=== PATIENT | female | born 1940 | race Caucasian/White ===

== ENCOUNTER 2024-12-22 09:42 | Observation (INO) | payer MEDICARE ==
[~2024-12-22] VITALS: Ht 152.4 cm; Wt 40.4 kg
[2024-12-22 10:05] LABS: IMMATURE GRANULOCYTE ABSOLUTE 0.02 K/uL (0-1); NUCLEATED RED BLOOD CELLS 0.0 % (0.0-0.19); PLATELET COUNT (AUTO) 196 K/uL (130-400); RED BLOOD CELL COUNT(AUTO) 4.67 MIL/uL (4.00-5.50); RED CELL DISTRIBUTION WIDTH 14.2 % (11.0-15.5); WHITE BLOOD COUNT (AUTO) 4.2 K/uL (4.8-10.8)
[2024-12-22 10:12] LABS: CREATININE 1.1 mg/dL (0.5-1.0); GLOMERULAR FILTR. RATE CALC 49.0 mL/min (>90); GLUCOSE,RANDOM 113.0 mg/dL (70-105); SODIUM SERUM 138.0 mmol/L (136-145); UREA NITROGEN, BLOOD 33.0 mg/dL (7-18)
--- NOTE | 2024-12-22 10:13 | ERN ---
General Chief Complaint: Dizzy/Light Headed Stated Complaint: DIZZINESS, GBW Time Seen by MD: 09:48 Source: patient History of Present Illness Initial Comments Patient is a an 84-year-old female coming in to be evaluated for generalized body weakness and vertigo for eight months. Per patient she has been dizzy on and off for eight months has been evaluated before but states that her vertigo goes and comes along with the she states he is overwhelmed because he is taking care were has been who was had the bur and the senior living. She states "she can not go on". Allergies: Coded Allergies: acetaminophen (Unverified Allergy, Unknown, 12/22/24) codeine (Unverified Allergy, Unknown, 12/22/24) naproxen (Unverified Allergy, Unknown, 12/22/24) Past Medical History Past Medical History: Diabetes-Type II, High Cholesterol Past Surgical History: Other Surgical History Other: BACK SX , RT ARM ROS Dictation CONSTITUTIONAL: No chills, no fever, no weakness, no diaphoresis, no malaise. HEAD/FACE: No signs of trauma. EENT: No eye pain, no blurred vision, no tearing, no double vision, no ear pain, no ear discharge, no nose pain, no nasal congestion, no throat pain, no throat swelling, no mouth pain. RESPIRATORY: No cough, no orthopnea, no SOB, no stridor, no wheezing. CARDIOVASCULAR: No chest pain, no edema, no palpitations, no syncope. GASTROINTESTINAL/ABDOMINAL: No abdominal pain, no constipation, no diarrhea, no nausea, no vomiting. GENITOURINARY: No abnormal discharge, no dysuria, no frequent urination, no hematuria. No complaints of pain in the genitals. MUSCULOSKELETAL: No back pain, no gout, no joint pain, no joint swelling, no muscle pain, no muscle stiffness, no neck pain. INTEGUMENTARY: No change in color, no change in hair/nails, no dryness, no lesion, no lumps, no rash. NEUROLOGICAL/PSYCH: No anxiety, not depressed, no emotional problem, no headache, no numbness, no pre-existing deficit, no history of seizures, no tremors, no weakness. HEMATOLOGIC/LYMPHATIC: Not anemic, no history of blood clots, no apparent bleeding, no bruising, glands not swollen. All Systems Negative, Except as Noted. Physical Exam Physical Exam Dictation VITAL SIGNS: Reviewed. GENERAL APPEARANCE: Alert, oriented x3, no acute distress, obese. HEAD AND FACE: Non-traumatic. EYES: PERRL, pink conjunctivas, eyelid no trauma, anterior chamber clear. EARS: Pinnas intact and no signs of trauma or erythema. Ear canals clear and no discharge. TMs no erythema. NOSE: No discharge, no bleeding. OROPHARYNX: Mouth normal, teeth no caries, tongue pink. Pharynx clear, no erythema. Tonsils no exudates, no abscesses noted. Mucous membrane moist. NECK: Supple, non-tender, no thyromegaly, no masses, no JVD, no bruits. BREAST: Deferred. CHEST: No tenderness, no crepitus, no paradoxical movement, no retractions. LUNGS: Clear, well-ventilated, symmetric, no rales, no wheezing, no rhonchi, no stridor, good breath sounds bilaterally. HEART: Regular rate, regular rhythm, no murmur, no gallops. VASCULAR: No peripheral edema. ABDOMEN: Soft, positive bowel sounds, nondistended, no guarding, nontender, no rebound, no masses no hepatomegaly, no splenomegaly, no Velásquez's sign, no hernias. RECTAL: Deferred. GENITAL: Deferred. NEUROLOGICAL: Normal speech, gross motor function intact, gross sensory function intact. MUSCULOSKELETAL: Neck nontender, full range of motion, back nontender, full range of motion. EXTREMITIES: Nontender, full range of motion. SKIN: Color pink, dry, no turgor, no rash, no lacerations, no abrasions, no contusions. LYMPHATICS: Deferred. Results Laboratory and Microbiology Lab and Micro Result Laboratory Tests Test 12/22/24 10:00 12/22/24 10:34 White Blood Count 4.2 K/uL (4.8-10.8) L Red Blood Count 4.67 MIL/uL (4.00-5.50) Hemoglobin 13.8 g/dL (12.0-16.0) Hematocrit 42.2 % (36-48) Mean Corpuscular Volume 90.4 fL (79-99) Mean Corpuscular Hemoglobin 29.6 pg (27.0-33.0) Mean Corpuscular Hemoglobin Concent 32.7 g/dL (32.0-36.0) Red Cell Distribution Width 14.2 % (11.0-15.5) Platelet Count 196 K/uL (130-400) Mean Platelet Volume 11.4 fL (7.5-10.5) H Immature Granulocyte % (Auto) 0.5 % (0-1) Neutrophils (%) (Auto) 75.4 % (40.0-77.0) Lymphocytes (%) (Auto) 11.1 % (21.0-51.0) L Monocytes (%) (Auto) 11.1 % (3.0-13.0) Eosinophils (%) (Auto) 0.7 % (0.0-8.0) Basophils (%) (Auto) 1.2 % (0.0-5.0) Neutrophils # (Auto) 3.2 K/uL (1.8-7.7) Lymphocytes # (Auto) 0.5 K/uL (1.0-4.8) L Monocytes # (Auto) 0.5 K/uL (0.1-1.0) Eosinophils # (Auto) 0.03 K/uL (0.00-0.70) Basophils # (Auto) 0.05 K/uL (0.00-0.20) Absolute Immature Granulocyte (auto 0.02 K/uL (0-1) Nucleated Red Blood Cells 0.0 % (0.0-0.19) Sodium Level 138 mmol/L (136-145) Potassium Level 4.4 mmol/L (3.5-5.1) Chloride Level 101 mmol/L (101-111) Carbon Dioxide Level 30 mmol/L (21-32) Blood Urea Nitrogen 33 mg/dL (7-18) H Creatinine 1.1 mg/dL (0.5-1.0) H Glomerular Filtration Rate Calc 49 mL/min (>90) Random Glucose 113 mg/dL (70-105) H Total Calcium 9.2 mg/dL (8.5-10.1) Urine Color LIGHT-YELLOW (YELLOW) Urine Appearance CLEAR (CLEAR) Urine pH 6.0 (5.0-8.0) Urine Specific [place] 1.020 (1.001-1.031) Urine Protein NEGATIVE mg/dL (NEGATIVE) Urine Glucose (UA) NEGATIVE mg/dL (NEGATIVE) Urine Ketones NEGATIVE mg/dL (NEGATIVE) Urine Occult Blood NEGATIVE (NEGATIVE) Urine Nitrate NEGATIVE (NEGATIVE) Urine Bilirubin NEGATIVE mg/dL (NEGATIVE) Urine Urobilinogen 0.2 mg/dL (0.2-1.0) Urine Leukocyte Esterase NEGATIVE Rajeev/uL Urine RBC 0-1 /HPF (0-1) Urine WBC 0-1 /HPF (0-1) Urine Squamous Epithelial Cells RARE /HPF (0-2) Urine Bacteria None /HPF (None Seen) Labs Reviewed?: Yes EKG/XRAY/US/CT/MRI EKG Comment 12/22/2024 time 10:44 a.m. Ventricular rate 74 Sinus rhythm [place] [address] wave elevation or depression MDM MDM: Differential diagnosis: Failure to thrive, cerumen impaction, Rationale: Tests considered and ordered secondary to shared decision making include: labs, ECG and radiology Previous outside records reviewed: Old ER visits. Risk of complication and/or morbidity or mortality of patient management: None Medications-Per medication reconciliation Need for hospitalization: Patient does meet criteria for hospitalization. Need for emergency major/minor surgery: No There are no social concerns with this patient. Prescription drug management Prescriptions will include symptomatic care Patient's prior external medical records from other ER visits were reviewed by me as indicated. Prior testing and results from previous visits were reviewed. Prior tests were taken into account with medical decision making and resource utilization, independent historian/historians were used to obtain complete medical history. I independently interpreted the test that were performed, results were reviewed by me and considered findings on radiology if ordered. Medical management and examination interpretation discussions were had by me with other qualified healthcare professionals as indicated for the patient's care. Patient will be admitted Under the care of [facility]. ED Course Orders Procedure Category Date Status Time Cbc With Differential LAB 12/22/24 Complete 09:52 Urinalysis LAB 12/22/24 Complete W/Microscopic 09:52 Basic Metabolic Panel LAB 12/22/24 Complete 09:52 12 Lead Ekg Tracing- EKG 12/22/24 Complete Technical 09:52 0.9%Nacl 1000ml (Ns PHA 12/22/24 In Process 1000ml) 11:30 Current Medications Medications (Trade) Dose Ordered Sig/Aron Route PRN Reason Start Time Stop Time Status Last Admin Dose Admin Sodium Chloride 1,000 ml @ 0 mls/hr ONCE ONCE IV 12/22/24 11:30 12/22/24 11:31 12/22/24 11:08 Vital Signs Date Time Temp Pulse Resp B/P (MAP) Pulse Ox O2 Delivery O2 Flow Rate FiO2 12/22/24 09:48 97.5 82 18 142/70 99 DX & DISP Disposition: Inpatient Decision to Admit Time: 11:21 Departure Impression: Primary Impression: Failure to thrive Additional Impressions: Cerumen impaction, Sinusitis Condition: Stable Referrals: ALBARO KIRKLAND MD (PCP) STEPHEN BELTRAN MD Dec 22, 2024 10:12
[2024-12-22 10:48] LABS: APPEARANCE,URINE CLEAR (CLEAR); GLUCOSE, URINE (UA) NEGATIVE (NEGATIVE); LEUKOCYTE ESTERASE ,URINE NEGATIVE Leu/uL (NEGATIVE); NITRATE,URINE NEGATIVE (NEGATIVE); OCCULT BLOOD,URINE NEGATIVE (NEGATIVE); SQUAMOUS EPITHELIAL CELL,UR RARE /HPF (0-2)
--- NOTE | 2024-12-22 11:05 | EKG ---
[facility] Test Date: 2024-12-22 Test Time: 10:44:50 Pat Name: FELIBERTO MURCIA Department: [facility] Room: ED Gender: F Skein Yarn Drier: [id number] : [id number] Requested By: STEPHEN BELTRAN Order Number: [id number] Reading MD: Leopoldo Blackmon Measurements Intervals [place] Rate: 74 P: 69 TN: 146 QRS: 13 QRSD: 94 T: 60 QT: 377 QTc: 419 Interpretive Statements Sinus rhythm No previous ECG available for comparison Electronically Signed On 12-22-2024 19:05:53 [employer] by Leopoldo Blackmon Please click the below link to view image of tracing.
[2024-12-22] MEDS: 0.9%NACL 1000ML 1,000 ML IV ONE (11:08)
--- NOTE | 2024-12-22 11:37 | HP ---
[facility] HISTORY & PHYSICAL Date Patient Seen: Dec 22, 2024 Time of Visit: 11:37 Supervising Physician: Mode Malone MD Primary Care Physician: Arun Choudhury Outpatient Specialists: [ ] Inpatient Consults: Psychiatry PROBLEM LIST: Vertigo w/ ataxia R/O posterior circulations stroke Cachexia DHN DEANDRE Malnourished Depression with no SI Hx of Cerebral Palsy Consumes daily etoh (1 glass [place] and pepsi daily) HPI: Since then 84-year-old cachectic female w/ a past medical Hx of cerebral palsy who is a poor historian; presented to the ED for evaluation of dizziness for a few months. Patient reports she has been under a lot of stress because her is at a alf facility and she has been having to care for him off and on. Patient takes multivitamins at home as well as has prescribed methadone. Patient reports she drinks one glass of alcohol, bourbon with Pepsi every night with her dinner. In the ED patient was slightly hypertensive with a blood pressure 142/70 heart rate in the 80s respiratory rate of 18 saturating 99% on room air and afebrile. CBC shows a white count that is slightly low 4.2 platelet count is normal H&H is normal. Chemistries shows BUN 33 creatinine 1.1 GFR of 49 glucose 113 mg/dL troponin is negative CK is normal. Chest x-ray with no acute cardiopulmonary process. Signed diaphragm consistent with suspected COPD. On assessment patient is awake alert oriented x3. Slow to respond and forgetful. She came into the ED with a caregiver who is at the bedside. As per caregiver patient does eat her meals appropriately. Patient walks with a walker at home. She reports tenderness to left calf with trace edema. As per patient has a previous history of a ankle fracture and is very painful to apply pressure to site. She continues to report vertigo and noted to have ataxia to bilateral upper extremities. PAST MEDICAL HX: see above PAST SURGICAL HX: noncontributory SOCIAL HISTORY: No tobacco, ETOH, or illicit drug use Coded Allergies: acetaminophen (Unverified Allergy, Unknown, 12/22/24) codeine (Unverified Allergy, Unknown, 12/22/24) naproxen (Unverified Allergy, Unknown, 12/22/24) REVIEW OF SYSTEMS: 12 point ROS reviewed with patient. Pertinent positives mentioned above. Otherwise negative. PHYSICAL EXAM: GENERAL: Cachectic alert, weak, awake oriented x 3, forgetful HEENT: EOMI, Sclera non icteric, moist mucosa NECK: Supple, no JVD, trachea midline LUNGS: Clear breath sounds bilaterally. No wheezes HEART: Regular rate and rhythm. Normal S1 and S2, without murmurs ABD: Abdomen soft, nontender. Bowel sounds present EXT: No clubbing cyanosis or trace edema to left lower extremity and tenderness to left ankle history of ankle fracture. NEURO: Alert and oriented to person, follows commands Vital Signs (last 8hr) Date Time Temp Pulse Resp B/P (MAP) Pulse Ox O2 Delivery O2 Flow Rate FiO2 12/22/24 10:33 98.6 82 18 142/70 99 Room Air* 0 21 12/22/24 09:48 97.5 82 18 142/70 99 LABS: Hematology Labs: Test 12/22/24 10:00 Range/Units White Blood Count 4.2 L 4.8-10.8 K/uL Red Blood Count 4.67 4.00-5.50 MIL/uL Hemoglobin 13.8 12.0-16.0 g/dL Hematocrit 42.2 36-48 % Mean Corpuscular Volume 90.4 79-99 fL Mean Corpuscular Hemoglobin 29.6 27.0-33.0 pg Mean Corpuscular Hemoglobin Concent 32.7 32.0-36.0 g/dL Red Cell Distribution Width 14.2 11.0-15.5 % Platelet Count 196 130-400 K/uL Mean Platelet Volume 11.4 H 7.5-10.5 fL Immature Granulocyte % (Auto) 0.5 0-1 % Neutrophils (%) (Auto) 75.4 40.0-77.0 % Lymphocytes (%) (Auto) 11.1 L 21.0-51.0 % Monocytes (%) (Auto) 11.1 3.0-13.0 % Eosinophils (%) (Auto) 0.7 0.0-8.0 % Basophils (%) (Auto) 1.2 0.0-5.0 % Neutrophils # (Auto) 3.2 1.8-7.7 K/uL Lymphocytes # (Auto) 0.5 L 1.0-4.8 K/uL Monocytes # (Auto) 0.5 0.1-1.0 K/uL Eosinophils # (Auto) 0.03 0.00-0.70 K/uL Basophils # (Auto) 0.05 0.00-0.20 K/uL Absolute Immature Granulocyte (auto 0.02 0-1 K/uL Nucleated Red Blood Cells 0.0 0.0-0.19 % Chemistry Labs: Test 12/22/24 10:00 Range/Units Sodium Level 138 136-145 mmol/L Potassium Level 4.4 3.5-5.1 mmol/L Chloride Level 101 101-111 mmol/L Carbon Dioxide Level 30 21-32 mmol/L Blood Urea Nitrogen 33 H 7-18 mg/dL Creatinine 1.1 H 0.5-1.0 mg/dL Glomerular Filtration Rate Calc 49 >90 mL/min Random Glucose 113 H 70-105 mg/dL Total Calcium 9.2 8.5-10.1 mg/dL DIAGNOSTICS / RADIOLOGY RESULTS: [ ] PLAN admit to med/surg tele Vertigo and ataxia - rule out Posterior circulation stroke MRI of the brain D-Dimer elvated rule out DVT Chest XR resume home meds once available. Psych eval for depression PT eval and treat CM - DC Planning Per psychiatry recommendations -Patient is not suicidal, homicidal or psychotic and she does not meet criteria for inpatient psychiatric admission at this time. -Recommend trial of Lexapro 5 mg daily for 4-5 days and then increase to 10 mg daily for depression and anxiety (non-formulary @ [facility] [place]) -Patient denies plan or intent to harm herself and she does not require 1:1 observation -Please refer to outapatient psychiatry after DC -Psychiatry signing off NEURO: Minimize central acting medications as possible. Maintain fall precautions, adequate lighting during the day PULMONARY: Supplemental 02 as needed. Maintain aspiration precautions at all times CARDIOVASCULAR: Follow hemodynamics. Vital signs per facility protocol GI & NUTRITION: Continue with nutritional support. Continue stool softeners and laxatives as needed. KIDNEYS & ELECTROLYTES: Strict monitoring of intake, output and overall fluid balance. Avoid nephrotoxic medications to the extent possible. Medications to be dosed according to renal function. Monitor electrolytes and replace as needed ENDOCRINE: Maintain blood glucose between 100-180 at all times. Hypoglycemia protocol in place INFECTIOUS DISEASE: Trend temperature, WBC and procalcitonin level Follow cultures, deescalate antibiotics as soon as possible. Panculture if new onset fever ONCOLOGY/HEMATOLOGY/COAGULATION: Monitor for s/s of bleeding Monitor hemoglobin, coagulation studies as needed SKIN: Pressure ulcer prevention per facility protocol Specialty mattress ORTHO/REHAB: Continue PT/OT Prophylaxis: Continue GI and DVT prophylaxis Code Status: Full Resuscitation Disposition: TBD Other: Total patient care time exceeds 35 minutes excluding all procedures. ATTESTATION BY PHYSICIAN I reviewed the documentation, medical decision making, and treatment plan as noted by the mid-level provider above. I agree with the findings and plan of care. Mode Malone MD, [facility] Dec 22, 2024 11:37
--- NOTE | 2024-12-22 11:53 | CONS ---
CONSULT NOTE: Reason for consult: depression Reason for ED visit: Patient is a an 84-year-old female coming in to be evaluated for generalized body weakness and vertigo for eight months. Per patient she has been dizzy on and off for eight months has been evaluated before but states that her vertigo comes and goes. Patient also states she is overwh elmed and she "can not go on". CC: "I don't need a psychiatrist" HPI: Patient states she doesn't need a psychiatrist and that she's not crazy. She says she has been trying to take care of her and she is upset that he wants to come home from the shelter. Her son says that he can't come home and they are trying to find a place that both patient and can go together. Patient says she is ok with this but they haven't gotten approval from her . She reports she has been sleeping and eating well. She reports she has been depressed for months and she reports frequent crying spells. She does report feeling hopeless and helpless sometimes. She also reports low energy and low motivation but she does her best to get up and keep going. She does report nihilistic thoughts and she says, "it would be good if I were or something." She denied plan or intent to harm herself. She denied AVH and paranoia. She reports she is always nervous and worried. She says she has been nervous her whole life due to being born with cerebral palsy. She is agreeable to trial of Lexapro for depression and anxiety. Current psychiatric medications: none Vital Signs Date Time Temp Pulse Resp B/P (MAP) Pulse Ox O2 Delivery O2 Flow Rate FiO2 12/22/24 10:33 98.6 82 18 142/70 99 Room Air* 0 21 Current Medications Medications Dose Ordered Sig/Aron Start Time Stop Time Status Last Admin Famotidine 20 mg Q48H 12/22/24 21:00 01/21/25 20:59 Enoxaparin Sodium 30 mg DAILY 12/23/24 09:00 01/22/25 08:59 Laboratory Tests Test 12/22/24 10:00 12/22/24 10:34 White Blood Count 4.2 K/uL (4.8-10.8) L Red Blood Count 4.67 MIL/uL (4.00-5.50) Hemoglobin 13.8 g/dL (12.0-16.0) Hematocrit 42.2 % (36-48) Mean Corpuscular Volume 90.4 fL (79-99) Mean Corpuscular Hemoglobin 29.6 pg (27.0-33.0) Mean Corpuscular Hemoglobin Concent 32.7 g/dL (32.0-36.0) Red Cell Distribution Width 14.2 % (11.0-15.5) Platelet Count 196 K/uL (130-400) Mean Platelet Volume 11.4 fL (7.5-10.5) H Immature Granulocyte % (Auto) 0.5 % (0-1) Neutrophils (%) (Auto) 75.4 % (40.0-77.0) Lymphocytes (%) (Auto) 11.1 % (21.0-51.0) L Monocytes (%) (Auto) 11.1 % (3.0-13.0) Eosinophils (%) (Auto) 0.7 % (0.0-8.0) Basophils (%) (Auto) 1.2 % (0.0-5.0) Neutrophils # (Auto) 3.2 K/uL (1.8-7.7) Lymphocytes # (Auto) 0.5 K/uL (1.0-4.8) L Monocytes # (Auto) 0.5 K/uL (0.1-1.0) Eosinophils # (Auto) 0.03 K/uL (0.00-0.70) Basophils # (Auto) 0.05 K/uL (0.00-0.20) Absolute Immature Granulocyte (auto 0.02 K/uL (0-1) Nucleated Red Blood Cells 0.0 % (0.0-0.19) Sodium Level 138 mmol/L (136-145) Potassium Level 4.4 mmol/L (3.5-5.1) Chloride Level 101 mmol/L (101-111) Carbon Dioxide Level 30 mmol/L (21-32) Blood Urea Nitrogen 33 mg/dL (7-18) H Creatinine 1.1 mg/dL (0.5-1.0) H Glomerular Filtration Rate Calc 49 mL/min (>90) Random Glucose 113 mg/dL (70-105) H Total Calcium 9.2 mg/dL (8.5-10.1) Urine Color LIGHT-YELLOW (YELLOW) Urine Appearance CLEAR (CLEAR) Urine pH 6.0 (5.0-8.0) Urine Specific [place] 1.020 (1.001-1.031) Urine Protein NEGATIVE mg/dL (NEGATIVE) Urine Glucose (UA) NEGATIVE mg/dL (NEGATIVE) Urine Ketones NEGATIVE mg/dL (NEGATIVE) Urine Occult Blood NEGATIVE (NEGATIVE) Urine Nitrate NEGATIVE (NEGATIVE) Urine Bilirubin NEGATIVE mg/dL (NEGATIVE) Urine Urobilinogen 0.2 mg/dL (0.2-1.0) Urine Leukocyte Esterase NEGATIVE Rajeev/uL Urine RBC 0-1 /HPF (0-1) Urine WBC 0-1 /HPF (0-1) Urine Squamous Epithelial Cells RARE /HPF (0-2) Urine Bacteria None /HPF (None Seen) MSE: Patient is an 84 yo female. She is alert and oriented to person, place and situation. Eye contact is fair. Gait is not evaluated. No AIMS or psychomotor disturbances. Mood is "sad" and affect is neutral and reactive. Thought process is mostly linear and goal directed. Thought content is + for nihilistic thoughts but she denies active SI, HI, AVH. Memoroy and cognition are grossly intact. Insight and judgment are fair. Assessment: MDD, moderate, recurrent Anxiety Recommendations: -Patient is not suicidal, homicidal or psychotic and she does not meet criteria for inpatient psychiatric admission at this time. -Recommend trial of Lexapro 5 mg daily for 4-5 days and then increase to 10 mg daily for depression and anxiety -Patient denies plan or intent to harm herself and she does not require 1:1 observation -Please refer to outapatient psychiatry after DC -Psychiatry signing off *10 mins was spent [id number] with patient and 25 mins was spent on chart review and documentation BRITANY STEVENSON DO Dec 22, 2024 11:53
[2024-12-22 12:13] LABS: CREATINE KINASE, TOTAL 77.0 U/L (21-232)
[2024-12-22 12:32] LABS: ABG BASE EXCESS -2.3 mmol/L (-2.0-3.0); ABG HCO3 22.7 mmol/L (21.0-28.0); ABG OXYGEN SATURATION 92.1 % (94.0-98.0); ABG PCO2 40 mmHg (32-45); ABG PH 7.372 (7.350-7.450); PO2, ARTERIAL BG 64.3 mmHg (83.0-108.0); TEMPERATURE, CELSIUS BG 37.0 CELSIUS (35.5-37.0); VENT MODE, BG RA (ROOM AIR)
--- NOTE | 2024-12-22 12:40 | NUR ---
PSYCH CONSULT WITH DR. STEVENSON BEING DONE AT THIS TIME
--- NOTE | 2024-12-22 13:11 | NUR ---
CAREGIVER [facility] LT HER PHONE NUMBER [phone] TO CONTACT HER IF NEEDED.
[2024-12-22 13:52] LABS: COVID19 (SARS ANTIGEN RAPID) PRESUMPTIVE NEGATIVE (NEGATIVE); INFLUENZA TYPE A Negative For Type A (NEGATIVE); INFLUENZA TYPE B Negative For Type B (NEGATIVE)
--- NOTE | 2024-12-22 16:39 | NUR ---
DCP:HOME Pt currently lives alone in her home. Pt states that her sps has been at [facility] since May of this year leaving her alone in her home. Pt has a walker at home that she uses. As per daughter in law, pt has a investment officer that is with her "several hours" a day to assist her with ADLs and drive her to [facility] to see her . PCP is Arun Choudhury and uses [facility] for RX needs. SW spoke with daughter in law about potential respite services and she stated that she feels that perhaps the one who is burned out is the investment officer. Dgt in law states pt can be "a handful" thus making the investment officer tired but they are not interested in respite services. At [place] pt will want to go home.
[2024-12-22] MEDS ORDERED: RAMI10CA76 PO (19:06)
[2024-12-22] MEDS ORDERED: FOLI1 PO (19:06)
[2024-12-22] MEDS ORDERED: METH-820 PO (19:06)
[2024-12-22] MEDS ORDERED: PREG200C29 PO (19:06)
[2024-12-22] MEDS ORDERED: FENO43CA8 PO (19:06)
[2024-12-22] MEDS ORDERED: CALC-1125 PO (19:06)
[2024-12-22] MEDS ORDERED: METH-822 PO (19:06)
--- NOTE | 2024-12-22 19:07 | NUR ---
ARRIVAL 1850 PATIENT ARRIVED FROM ER VIA WHEELCHAIR. NO S/S OF DISTRESS NOTED. ORDERS TO BE REVIEWED AND CARRIED OUT. HOME MEDICATIONS ENTERED FOR REVIEW. PENDING RECONCILIATION
[2024-12-22 19:51] LABS: CREATINE KINASE, TOTAL 87.0 U/L (21-232)
[2024-12-22 20:00] VITALS: BP 154/69; PULSE 77; RESP 19; TEMP 97.9
[2024-12-22] MEDS: FAMOTIDINE 20MG TAB PO SCH (20:41)
[2024-12-22] MEDS: FENOFIBRATE NANOCRYSTALLIZED 48 MG TAB PO SCH (20:43)
[2024-12-22 21:00] VITALS: O2SAT 94
[2024-12-23] VITALS (7 sets, daily range): BP systolic 131–178; BP diastolic 62–100; PULSE 59–80; RESP 16–19; TEMP 96.3–98.4; O2SAT 94
--- NOTE | 2024-12-23 01:37 | HMCIMG ---
STUDY: VENOUS DOPPLER ULTRASOUND OF BOTH LOWER EXTREMITIES CLINICAL INFORMATION: Rule out deep venous thrombosis. TECHNIQUE: Duplex Doppler ultrasound of the deep venous systems of both lower extremities was performed using grayscale imaging, color Doppler, and spectral waveform analysis. COMPARISON: None provided. FINDINGS: The deep venous systems of both lower extremities, including the common femoral, femoral, popliteal, and visualized calf veins, are patent and fully compressible. Normal color filling and spontaneous, phasic, and augmentable venous Doppler waveforms are demonstrated bilaterally. No intraluminal echogenic thrombus is identified. No significant superficial venous thrombosis is seen in the visualized superficial venous segments. IMPRESSION: * No sonographic evidence of deep venous thrombosis in either lower extremity. /[place]
[2024-12-23 05:30] LABS: CREATINE KINASE, TOTAL 77.0 U/L (21-232)
--- NOTE | 2024-12-23 05:50 | HMCIMG ---
EXAM: CR Chest, 1 views. CLINICAL HISTORY: Cough. COMPARISON: None provided. FINDINGS: The lungs show no infiltrate or other acute findings. No pleural effusion or pneumothorax. The cardiomediastinal silhouette is within normal limits. No acute osseous abnormality. IMPRESSION: 1. No acute cardiopulmonary pathology is evident. /[place]
--- NOTE | 2024-12-23 06:23 | HMCIMG ---
EXAM: MR Brain Without IV Contrast CLINICAL HISTORY: To rule out CVA. TECHNIQUE: Multiplanar multi-sequence MRI of the brain. CONTRAST: None. COMPARISON: None provided. FINDINGS: There is generalized prominence of the sulci, gyri and cisternal spaces with mild dilatation of the ventricular system ??? suggestive of age-related diffuse neuro-parenchymal atrophy. 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 No evidence of acute cortical infarction, hemorrhage, mass or mass effect. The ventricular system is normal in size, shape, and contour. No hydrocephalus. No abnormal extra-axial fluid collection is present. The marrow signal within the skull base and calvarium is intact. The paranasal sinuses and mastoid air cells are clear. IMPRESSION: 1. No acute intracranial abnormality or mass. 2. Diffuse age-related neuro-parenchymal atrophy. /[place]
[2024-12-23] MEDS: THIAMINE HCL 100 MG/ML 2ML VIAL IVP SCH (07:55)
[2024-12-23] MEDS: CA 600MG+VIT D 400 UNIT TAB 1 TAB TABLET PO SCH (07:55)
[2024-12-23] MEDS: LISINOPRIL 40 MG TABLET PO SCH (07:56)
[2024-12-23] MEDS: ENOXAPARIN SODIUM 30 MG/0.3 ML SQ SCH (07:57)
[2024-12-23 13:20] LABS: NUCLEATED RED BLOOD CELLS 0.0 % (0.0-0.19); PLATELET COUNT (AUTO) 194 K/uL (130-400); RED BLOOD CELL COUNT(AUTO) 4.53 MIL/uL (4.00-5.50); RED CELL DISTRIBUTION WIDTH 13.9 % (11.0-15.5); WHITE BLOOD COUNT (AUTO) 6.5 K/uL (4.8-10.8)
[2024-12-23 13:26] LABS: IMMATURE GRANULOCYTE ABSOLUTE 0.03 K/uL (0-1)
[2024-12-23 13:58] LABS: ASPARTATE AMINOTRANSFERASE 22.0 U/L (10-37); CREATININE 1.1 mg/dL (0.5-1.0); GLOMERULAR FILTR. RATE CALC 49.0 mL/min (>90); GLUCOSE,RANDOM 165.0 mg/dL (70-105); SODIUM SERUM 137.0 mmol/L (136-145); TOTAL PROTEIN, SERUM 6.6 g/dL (6.0-8.3); UREA NITROGEN, BLOOD 23.0 mg/dL (7-18)
--- NOTE | 2024-12-23 18:43 | PN ---
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 Patient is awake, alert, and oriented. Accompanied by patient's bedside nurse. Hemodynamically stable. Afebrile. Consult placed to psychiatry from ensure that the patient is properly being ma naged with antipsychotic medications that she takes. Reviewed and discussed with patient laboratory results, vital signs, diagnostic tests results treatment plan and discharge plan. PT is two evaluate patient with discharge recommendations. Further orders per course of stay. A.m. labs ordered. Anticipate patient being discharged within next 24-48 hours. REVIEW OF SYSTEMS: 12 point ROS reviewed with patient. Pertinent positives mentioned above. Otherwise negative. PHYSICAL EXAM: GENERAL: Cachectic alert, weak, awake oriented x 3, forgetful HEENT: EOMI, Sclera non icteric, moist mucosa NECK: Supple, no JVD, trachea midline LUNGS: Clear breath sounds bilaterally. No wheezes HEART: Regular rate and rhythm. Normal S1 and S2, without murmurs ABD: Abdomen soft, nontender. Bowel sounds present EXT: No clubbing cyanosis or trace edema to left lower extremity and tenderness to left ankle history of ankle fracture. NEURO: Alert and oriented to person, follows commands Vital Signs (last 8hr) Date Time Temp Pulse Resp B/P (MAP) Pulse Ox O2 Delivery O2 Flow Rate FiO2 12/23/24 11:30 98.4 71 16 158/75 96 Room Air LABS: Hematology Labs: Test 12/23/24 13:13 Range/Units White Blood Count 6.5 4.8-10.8 K/uL Red Blood Count 4.53 4.00-5.50 MIL/uL Hemoglobin 13.2 12.0-16.0 g/dL Hematocrit 39.7 36-48 % Mean Corpuscular Volume 87.6 79-99 fL Mean Corpuscular Hemoglobin 29.1 27.0-33.0 pg Mean Corpuscular Hemoglobin Concent 33.2 32.0-36.0 g/dL Red Cell Distribution Width 13.9 11.0-15.5 % Platelet Count 194 130-400 K/uL Mean Platelet Volume 11.5 H 7.5-10.5 fL Immature Granulocyte % (Auto) 0.5 0-1 % Neutrophils (%) (Auto) 81.7 H 40.0-77.0 % Lymphocytes (%) (Auto) 10.0 L 21.0-51.0 % Monocytes (%) (Auto) 6.6 3.0-13.0 % Eosinophils (%) (Auto) 0.2 0.0-8.0 % Basophils (%) (Auto) 1.0 0.0-5.0 % Neutrophils # (Auto) 5.1 1.8-7.7 K/uL Lymphocytes # (Auto) 0.6 L 1.0-4.8 K/uL Monocytes # (Auto) 0.4 0.1-1.0 K/uL Eosinophils # (Auto) 0.01 0.00-0.70 K/uL Basophils # (Auto) 0.06 0.00-0.20 K/uL Absolute Immature Granulocyte (auto 0.03 0-1 K/uL Nucleated Red Blood Cells 0.0 0.0-0.19 % White Cell Morphology Comment See comments Chemistry Labs: Test 12/23/24 13:13 12/23/24 04:15 Range/Units Sodium Level 137 136-145 mmol/L Potassium Level 4.2 3.5-5.1 mmol/L Chloride Level 102 101-111 mmol/L Carbon Dioxide Level 27 21-32 mmol/L Blood Urea Nitrogen 23 H 7-18 mg/dL Creatinine 1.1 H 0.5-1.0 mg/dL Glomerular Filtration Rate Calc 49 >90 mL/min Random Glucose 165 H 70-105 mg/dL Total Calcium 9.0 8.5-10.1 mg/dL Total Bilirubin 0.6 0.2-1.0 mg/dL Aspartate Amino Transf (AST/SGOT) 22 10-37 U/L Alanine Aminotransferase (ALT/SGPT) 14 12-78 U/L Alkaline Phosphatase 33 L 50-136 U/L Total Protein 6.6 6.0-8.3 g/dL Albumin 3.6 3.5-5.0 g/dL Total Creatine Kinase 77 21-232 U/L Troponin I High Sensitivity 15.7 4-50 ng/L Coagulation Labs: Test 12/22/24 10:00 Range/Units D-Dimer Quantitative (PE/DVT) 666 *H 0-500 ng/mL DIAGNOSTICS / RADIOLOGY RESULTS: REASON: rule out DVT ORDERING PHYSICIAN: TO FARIAS PROCEDURE: VENOUS JAIMEE - US VENOUS DOPPLER BILATERAL STUDY: VENOUS DOPPLER ULTRASOUND OF BOTH LOWER EXTREMITIES CLINICAL INFORMATION: Rule out deep venous thrombosis. TECHNIQUE: Duplex Doppler ultrasound of the deep venous systems of both lower extremities was performed using grayscale imaging, color Doppler, and spectral waveform analysis. COMPARISON: None provided. FINDINGS: The deep venous systems of both lower extremities, including the common femoral, femoral, popliteal, and visualized calf veins, are patent and fully compressible. Normal color filling and spontaneous, phasic, and augmentable venous Doppler waveforms are demonstrated bilaterally. No intraluminal echogenic thrombus is identified. No significant superficial venous thrombosis is seen in the visualized superficial venous segments. IMPRESSION: * No sonographic evidence of deep venous thrombosis in either lower extremity. /[place] DICTATED BY: AMISHA FARRELL MD DATE: 12/23/24235 ELECTRONICALLY SIGNED BY: AMISHA FARRELL MD DATE: 12/23/24235 PLAN admit to med/surg tele Vertigo and ataxia - rule out V/Q scan results resume home meds once available. Psych eval for depression PT eval and treat CM - DC Planning Per psychiatry recommendations -Patient is not suicidal, homicidal or psychotic and she does not meet criteria for inpatient psychiatric admission at this time. -Recommend trial of Lexapro 5 mg daily for 4-5 days and then increase to 10 mg daily for depression and anxiety (non-formulary @ [facility] [place]) -Patient denies plan or intent to harm herself and she does not require 1:1 observation -Please refer to outapatient psychiatry after DC -Psychiatry signing off NEURO: Minimize central acting medications as possible. Maintain fall precautions, adequate lighting during the day PULMONARY: Supplemental 02 as needed. Maintain aspiration precautions at all times CARDIOVASCULAR: Follow hemodynamics. Vital signs per facility protocol GI & NUTRITION: Continue with nutritional support. Continue stool softeners and laxatives as needed. KIDNEYS & ELECTROLYTES: Strict monitoring of intake, output and overall fluid balance. Avoid nephrotoxic medications to the extent possible. Medications to be dosed according to renal function. Monitor electrolytes and replace as needed ENDOCRINE: Maintain blood glucose between 100-180 at all times. Hypoglycemia protocol in place INFECTIOUS DISEASE: Trend temperature, WBC and procalcitonin level Follow cultures, deescalate antibiotics as soon as possible. Panculture if new onset fever ONCOLOGY/HEMATOLOGY/COAGULATION: Monitor for s/s of bleeding Monitor hemoglobin, coagulation studies as needed SKIN: Pressure ulcer prevention per facility protocol Specialty mattress ORTHO/REHAB: Continue PT/OT Prophylaxis: Continue GI and DVT prophylaxis Code Status: Full Resuscitation Disposition: TBD Other: Total patient care time exceeds 35 minutes excluding all procedures. JACQUES FOWLER [facility] Dec 23, 2024 18:43
[2024-12-24] VITALS (7 sets, daily range): BP systolic 115–158; BP diastolic 59–88; PULSE 72–76; RESP 18–19; TEMP 98–98.2; O2SAT 98
[2024-12-24 05:00] LABS: NUCLEATED RED BLOOD CELLS 0.0 % (0.0-0.19); PLATELET COUNT (AUTO) 157.0 K/uL (130-400); RED BLOOD CELL COUNT(AUTO) 3.89 MIL/uL (4.00-5.50); RED CELL DISTRIBUTION WIDTH 14.1 % (11.0-15.5); WHITE BLOOD COUNT (AUTO) 4.4 K/uL (4.8-10.8)
[2024-12-24 05:25] LABS: ASPARTATE AMINOTRANSFERASE 18.0 U/L (10-37); CREATININE 1.0 mg/dL (0.5-1.0); GLOMERULAR FILTR. RATE CALC 55.0 mL/min (>90); GLUCOSE,RANDOM 96.0 mg/dL (70-105); SODIUM SERUM 139.0 mmol/L (136-145); TOTAL PROTEIN, SERUM 5.5 g/dL (6.0-8.3); UREA NITROGEN, BLOOD 25.0 mg/dL (7-18)
[2024-12-24] MEDS: SCOPOLAMINE HYDROBROMIDE 1 EACH ADH..PATCH TD SCH (17:15)
--- NOTE | 2024-12-24 17:18 | DS ---
[facility] DISCHARGE SUMMARY Date Patient Seen: Dec 24, 2024 Time of Visit: 17:18 Supervising Physician: Dr. 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 Patient reports being under extra stress and strain right now. Patient also reports having bourbon with a glass of Pepsi daily. Patient also reports using meals on wheels for her nutritional support at home currently. During admission PT worked in evaluate with the patient's the patient has a walker/wheelchair home which is appropriate for her patient has social services assistant already through primary care provider to provide meals on wheels for her. Patient also then follows up with primary care provider. Recommendations of psychiatric consults during the hospital admissions were s tarting the patient on Lexapro, which [place] non [place]ary [place] [facility] [place] These recommendations will be passed on to patient's primary care provider. Per psychiatry recommendations -Patient is not suicidal, homicidal or psychotic and she does not meet criteria for inpatient psychiatric admission at this time. -Recommend trial of Lexapro 5 mg daily for 4-5 days and then increase to 10 mg daily for depression and anxiety ([place]ul[place] [facility] [facility] [place] -Patient denies plan or intent to harm herself and she does not require 1:1 observation -Please refer to outapatient psychiatry after DC -Psychiatry signing off At this point in the admission process the patient is medically stable and can be discharged home with family care. At the point of discharge the patient has no questions or concerns and agrees to follow up with primary care provider. Time the primary care provider can provide the patient referral for a psychiatrist in her network that can treat the patient per the recommendations of the Psychiatric consult. HPI (per admitting provider) Since then 84-year-old cachectic female w/ a past medical Hx of cerebral palsy who is a poor historian; presented to the ED for evaluation of dizziness for a few months. Patient reports she has been under a lot of stress because her is at a [facility] facility and she has been having to care for him off and on. Patient takes multivitamins at home as well as has prescribed methadone. Patient reports she drinks one glass of alcohol, bourbon with Pepsi every night with her dinner. In the ED patient was slightly hypertensive with a blood pressure 142/70 heart rate in the 80s respiratory rate of 18 saturating 99% on room air and afebrile. CBC shows a white count that is slightly low 4.2 platelet count is normal H&H is normal. Chemistries shows BUN 33 creatinine 1.1 GFR of 49 glucose 113 mg/dL troponin is negative CK is normal. Chest x-ray with no acute cardiopulmonary process. Signed diaphragm consistent with suspected COPD. On assessment patient is awake alert oriented x3. Slow to respond and forgetful. She came into the ED with a caregiver who is at the bedside. As per caregiver patient does eat her meals appropriately. Patient walks with a walker at home. She reports tenderness to left calf with trace edema. As per patient has a previous history of a ankle fracture and is very painful to apply pressure to site. 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 -Recommend trial of Lexapro 5 mg daily for 4-5 days and then increase to 10 mg daily for depression and anxiety [place] [facility] [place] [facility] [place] -Patient denies plan or intent to harm herself and she does not require 1:1 observation -Please refer to outapatient psychiatry after DC -Psychiatry signing off PROCEDURES: as mentioned above DISCHARGE MEDICATIONS: Patient was provided a handwritten prescription in a copy of the medications were placed in the patient's chart. Pt hemodynamically stable and afebrile at time of discharge. PCP notified of patients admission, hospital course and discharge. PHYSICAL EXAM: GENERAL: Cachectic alert, weak, awake oriented x 3, forgetful HEENT: EOMI, Sclera non icteric, moist mucosa NECK: Supple, no JVD, trachea midline LUNGS: Clear breath sounds bilaterally. No wheezes HEART: Regular rate and rhythm. Normal S1 and S2, without murmurs ABD: Abdomen soft, nontender. Bowel sounds present EXT: No clubbing cyanosis or trace edema to left lower extremity and tenderness to left ankle history of ankle fracture. NEURO: Alert and oriented to person, follows commands FOLLOW-UP: Dr Loli Choudhury Follow-up with PCP in 2-3 days RECOMMENDATIONS: See Discharge Instructions This case was seen and discussed with my supervising physician. More than 45 minutes spent on discharge process, including evaluation of the patient, discussion with nursing staff, medication reconciliation and follow-up appointments JACQUES FOWLER [facility] Dec 24, 2024 17:18
--- NOTE | 2024-12-24 17:42 | NUR ---
Patient was Discharge home at this time. Provider at bedside. Dc instruction given to patient and provider, verbalize understanding. Patient was transfer on wheelchair to [facility] area. IV was removed skin intact.
== END 2024-12-24 17:55 | disposition home or self-care (01) ==
LOC: EDH 09:42 → EDHIP 11:30 → INTOOBSV 11:30 → 4DH 18:45
PROVIDERS: ADMIT Internal Medicine; ATTEND Internal Medicine
DX: R42 Dizziness and giddiness (principal); N17.9 Acute kidney failure, unspecified; R64 Cachexia; E46 Unspecified protein-calorie malnutrition; R53.81 Other malaise; F32.9 Major depressive disorder, single episode, unspecified; R60.0 Localized edema; Z20.822 Contact with and (suspected) exposure to COVID-19; Z79.899 Other long term (current) drug therapy; Z98.890 Other specified postprocedural states
CPT/HCPCS: 96361; 99285; 82550 ×3; 84484 ×3; 80048; 82803; 85025 ×2; 85378; 87804 ×2; 87426; 81001; 36415 ×3; 71045; 93970; 70551; 93005; 36600; 96374; 80053 ×2; 84425; 97161; 97116 ×2; 96376; 96372; 96375; 83735; 85027; 97530; J1650 ×2; J3411 ×2; G0378 ×4; J2405